=== PATIENT | male | born 1965 | race Caucasian/White ===

== ENCOUNTER 2025-03-30 03:15 | Outpatient (CLI) | payer MEDICARE, SELFPAY ==
--- NOTE | 2025-03-30 | DI.RAD_ITS ---
Exam(s) RF MODIFIED SPEECH BA SWALLOW TECHNIQUE: Modified barium swallow was performed in conjunction with speech pathology. CONTRAST MATERIAL: Oral barium contrast was administered. COMPARISON: No exams were available for comparison FINDINGS: Note that this is not a dedicated esophagram, distal esophagus not evaluated. There is no evidence of aspiration of thick or thin liquid barium, barium paste or barium coated cookie. Speech pathology report to follow. Note was made of penetration with thin liquid barium. IMPRESSION: There is no evidence of aspiration. Note was made of penetration with thin liquid barium. RADIATION DOSE DELIVERED: raya Oleary=12.4 mGy
--- NOTE | 2025-03-30 09:35 | ST.MBS_ITS ---
Date of Service Date of service: 03/30/25 Time of Service: 09:35 Modified Barium Swallow Study Findings: Video fluoroscopic Swallowing Evaluation (VFSE) / Modified Barium Swallow Study (MBSS) Speech Language Pathology Report Patient referred for VFSE/MBSS from Dr. Buck ([facility] [place], [place]) given difficulty swallowing in setting of supraglottic cancer. 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 Recently hospitalized prior to treatment, which has still not started, due to difficulty breathing and significant increase in odynophagia which lead to weight loss and resulted in a PEG tube placement while inpatient. Since that time his weight has stabilized. Hem Onc & Rad Onc team requesting pre-treatment MBSS to document baseline swallow function and to support/inform current treatment plan of definitive chemo/radiation treatment for organ preservation. IMPRESSIONS: Dysphagia diagnosis: Mild oral-pharyngeal dysphagia. Dysphagia is characterized primarily by possible reduced vs sluggish epiglottic inversion and slightly reduced laryngeal closure resulting in deep penetration of mild volumes of thin liquids into the airway to the level of the vocal folds. He is sensate to this residue and largely independent clearing it with throat clears, but requires 1-2 cues throughout the study. Suspect anatomical factors in setting of tumor/tissue changes are responsible, as swallow initiation, coordination, and strength appear largely WFL otherwise. Also noting asymmetrical bolus flow through the pharynx in the anterior/posterior view, though unsure if this represents a pattern changer patient's baseline. Puree & solid bolus as well as 13mm barium tablet transited the oral cavity and pharynx without delay, stasis, or residue. Most successful strategy to reduce frequency of thin liquid penetration was to perform a slight head tilt and following instructions to perform a hard and fast swallow as if swallowing a pill with liquids. Increasing viscosity to nectar thick also eliminated penetration. Clinical Indicator(s) of Prandial/Postprandial Aspiration include: Throat Clear Swallow safety: Patient appears to be at mild risk for potential aspiration PNA and/or pulmonary compromise, especially if swallow decompensates further with active treatment. Swallow efficiency: Patient appears to be at moderate risk for malnutrition, moderate risk for dehydration due to odynophagia, this risk is significantly mitigated already with feeding tube in place. RECOMMENDATIONS: Diet Texture Recommendation:? IDDSI LEVEL SOLIDS 6-Soft & Bite-Sized Solids - for comfort LIQUIDS 0-Thin Liquids with strategies in place Please see further details at?www.iddsi.org MEDICATIONS Whole with 0-Thin Liquids or via tube Diet texture modification is per patient's preference; please adjust diet textures at patient's discretion & collaboration with care team. Do not alter medications (e.g., cut)? without advice from your MD or pharmacist. Risk Management Strategies:? Very small sips, approx 5mL / teaspoon Swallow HARD & FAST Gentle throat clear as needed and re-swallow. Control risk factors for aspiration pneumonia via (a) thorough oral hygiene & (b) maintaining physical mobility as tolerated Swallow prognosis is fair/guarded given: Positive prognostic factors: Age, Severity, Cognitive status, Effectiveness of trialed compensatory strategies, Negative prognostic factors: Relative dose of Chemotherapy and/or radiation treatment, Surgical/anatomical factors and pending patient/caregiver training in risk management as outlined, including use of trialed compensatory strategies. Patient appears to be a good candidate for behavioral swallow rehabilitation to be followed during active treatment for further screening/counseling and HEP. PLAN: Therapy: Recommend subsequent outpatient session with REGISTERED NURSE CARDIAC to review results of today's exam and develop treatment plan as appropriate. HEP/pharyngocise, Further Compensatory Strategy Training, Further Training/Education in Risk Management. GOALS: Defer to treating clinician Recommend repeat VFSE/MBSS after completion of [employer] +6 wks or PRN. OBJECTIVE Videofluoroscopic Swallow Evaluation (VFSE/MBSS) was conducted in the lateral and [id number] projection by Speech-Language Pathologist, in collaboration with Radiologist, to evaluate oropharyngeal swallow function. Anatomic view under fluoroscopy: WFL PO Barium Contrast Trials Oral barium water-soluble contrast was administered as follows: IDDSI Level 0 Varibar thin liquid (40% w/v) IDDSI Level 2 Varibar nectar thick/mildly thick liquid (40% w/v) IDDSI Level 4 Varibar pudding/pureed/extremely thick (40% w/v) IDDSI Level 7 Regular Solid: 1/2 mickie cracker coated in 3 mL Varibar pudding 13 mm barium tablet taken with Thin Liquids. MBSImP Component Scores: COMPONENT Scale SCORE 1 Lip closure (0-4) 0 Resulted in no labial escape 2 Hold Position (0-3) 0 Maintained a cohesive bolus between tongue to palatal seal 3 Bolus Preparation (0-4) 0 Resulted in timely and efficient chewing and mashing 4 Bolus Transport (0-4) 0 Was with brisk tongue motion 5 Oral Residue (0-4) 1 Was a trace, lining oral structures 6 Swallow Initiation (0-4) 2 Occurred as bolus head at posterior laryngeal surface of epiglottis 7 Soft Palate Elevation (0-4) 0 Resulted in no bolus between soft palate and the pharyngeal wall 8 Laryngeal Elevation (0-3) 1 Was decreased with partial superior movement of thyroid cartilage/partial approximation of arytenoids to epiglottic petiole 9 Anterior Hyoid Motion (0-2) 0 Demonstrated complete anterior movement 10 Epiglottic Movement (0-2) 1 Resulted in partial inversion 11 Laryngeal Closure (0-2) 1 Was incomplete with narrow a column of air/contrast in laryngeal vestibule 12 Pharyngeal Stripping Wave (0-2) 0 Was present and complete 13 Pharyngeal Contraction (0-3) 1 Was incomplete, with presence of pseudodiverticulae 14 PES Opening (0-3) 0 Was completely distended and complete duration with no obstruction of flow 15 Tongue Base Retraction (0-4) 1 Allowed a trace column of contrast or air between tongue base and pharyngeal wall 16 Pharyngeal Residue (0-4) 1 Showed a trace within or on pharyngeal structures 17 Esophageal Clearance (0-4) 0 Was complete, with only a coating of contrast, if any Results: COMPONENT Scale SCORE 1 Oral Score (0-18) 2 2 Pharyngeal Score (0-29) 4 3 Esophageal Score (0-4) 0 Penetration-Aspiration Scale: COMPONENT Scale SCORE 1 Thin liquid (1-8) 4 Contrast entered the airway, contacted the vocal folds, and was ejected from the airway. 2 [place] thick (1-8) 1 Contrast did not enter the airway 3 Honey thick (1-8) NA 4 Pudding thick (1-8) 2 Contrast entered the airway, remained above the vocal folds, and was ejected from the airway. 5 Cookie (1-8) 1 Contrast did not enter the airway DIGEST: COMPONENT Scale SCORE 1 Thin Max PAS (1-8) 4 Contrast entered the airway, contacted the vocal folds, and was ejected from the airway. 2 [place] Max PAS (1-8) 1 Contrast did not enter the airway 3 Honey Max PAS (1-8) NA 4 Liquid Max PAS (1-8) 4 Maximum PAS Score over all liquid trials 5 Liquid Max Residue (0-3) 0 below 10% 6 Pudding Max PAS (1-8) 1 Contrast did not enter the airway 7 Pudding Max Residue (0-3) 0 below 10% 8 Cracker Max PAS (1-8) 1 Contrast did not enter the airway 9 Cracker Max Residue (0-3) 0 below 10% 10 Frequency if PAS >= 3 (0-3) 3 Chronic (50% or more of thin liquid trails and/or more than one consistency) 11 Amount if PAS >= 5 (0-1) NA Results: COMPONENT Scale SCORE 1 SAFETY GRADE (0-4) 1 Safety grade for swallowing based on patterns of aspiration or laryngeal penetration 2 EFFICIENCY GRADE (0-4) 0 Efficiency grade of swallowing based on patterns of pharyngeal residue 3 DIGEST (0-4) 1 Severity grade of pharyngeal dysphagia: 0 - Normal, 1 - Mild, 2 - Moderate, 3 - Severe, 4 - Life threatening 4 Max Exam PAS (1-8) 4 Maximum PAS Score over all bolus trials 5 Max Exam Residue (0-3) 0 Maximum Exam Residue over all bolus trials [place] Pharyngeal Residue Severity Rating Scale (YPRS) (Jennifer et al, 2015) Vallecula Residue Severity I None 0% No residue Pyriform Sinus Residue Severity II Trace 1-5% Trace coating of the mucosa Observations not captured in quantitative data: Some hypopharyngeal trace residue for liquids on the inferior posterior pharyngeal wall, likely transferred from posterior surface of epiglottis with incomplete closure. Trialed Compensatory Strategies & Outcome: Maneuvers Successful (+) Unsuccessful(-) Postures Successful (+) Unsuccessful(-) 3 second hold ?+ Chin Tuck Posture? ? Cough? ? Posterior Head tilt?? ?+/- in isolation ? Reflexive? Cued? Throat Clear? ? Head Tilt to? Reflexive? ?+ ? Left? Cued? ?+ ? Right? ? Saliva swallow? ?+ (liquids) Head Turn/Rotate to? ? Supraglottic Swallow? Left? ? Super-supraglottic Swallow? Right? ? Bolus Modifications Successful (+) Unsuccessful (-) Delivery/Alternating Consistencies ? Follow with Liquid Wash ? Follow with Solid Bolus? Delivery/Via Straw? ? Reduced Volume? ?+ Reduced Rate of Intake? ? Increased Viscosity? ?+ Other:??HARD AND FAST WITH HEAD TILT ?+ Thank you for allowing us to take part in this patient's care. Please feel free to contact the [facility] Speech Language Pathology Department with any questions/concerns.
[2025-03-30] MEDS: Barium Sulfate 81% w/w for Oral Suspension 148 GM BTL PO (10:10)
[2025-03-30] MEDS: Barium Sulfate 40% W/V 240 ML BTL PO (10:11)
[2025-03-30] MEDS: Barium Sulfate 700 MG TAB PO (10:12)
[2025-03-30] MEDS: Barium Sulfate Oral Paste 40% W/V 230 ML TUBE PO (10:13)
== END 2025-03-30 03:35 ==
PROVIDERS: Visit Provider Internal Medicine Hematology
DX: R13.12 Dysphagia, oropharyngeal phase (principal)
CPT/HCPCS: 92526; 74221

== ENCOUNTER 2025-04-24 01:25 | Outpatient (CLI) | payer MEDICARE, SELFPAY ==
[2025-04-24 11:43] LABS: Abs Immature Grans 0.03 10^3/uL (0.0-0.06); HCT 36.3 % (40.0-50.0); HGB 11.2 g/dL (13.5-17.5); Immature Grans % 0.4 %; MCH 27.7 pg (27.0-33.0); MCHC 30.9 % (32.0-36.0); MCV 90 fL (80-95); MPV 9.9 fL (8.0-11.0); Platelet Count 320 10^3/uL (130-400); RBC 4.04 10^6/uL (4.36-5.78); RDW 13.6 % (11.8-14.1); RDW-SD 45.1 fL; WBC 8.22 10^3/uL (4.4-10.8)
[2025-04-24 12:06] LABS: ALT 43 U/L (16-63); AST 31 U/L (15-37); Albumin 3.1 g/dL (3.4-5.0); Alkaline Phosphatase 127 U/L (46-116); Anion Gap 1.2 mmol/L (3-11); BUN 21 mg/dL (7-18); Bilirubin, Total 0.2 mg/dL (0.2-1.0); CO2 38.8 mmol/L (21.0-32.0); Calcium 8.6 mg/dL (8.5-10.1); Chloride 99 mmol/L (98-107); Glucose 113 mg/dL (74-106); Magnesium 2.1 mg/dL (1.8-2.4); Potassium 4.3 mmol/L (3.5-5.1); Sodium 139 mmol/L (136-145); Total Protein 6.7 g/dL (6.4-8.2)
== END 2025-04-24 01:26 | disposition home or self-care (01) ==
LOC: LBO 01:25
PROVIDERS: Visit Provider Internal Medicine Hematology
DX: C32.9 Malignant neoplasm of larynx, unspecified (principal)
CPT/HCPCS: 36415; 80053; 83735; 85025

== ENCOUNTER 2025-04-30 03:35 | Outpatient (CLI) | payer MEDICARE, SELFPAY ==
[2025-04-30 11:23] LABS: Abs Immature Grans 0.03 10^3/uL (0.0-0.06); HCT 37.7 % (40.0-50.0); HGB 12.4 g/dL (13.5-17.5); Immature Grans % 0.3 %; MCH 29.0 pg (27.0-33.0); MCHC 32.9 % (32.0-36.0); MCV 88 fL (80-95); MPV 10.2 fL (8.0-11.0); Platelet Count 319 10^3/uL (130-400); RBC 4.27 10^6/uL (4.36-5.78); RDW 13.7 % (11.8-14.1); RDW-SD 43.8 fL; WBC 10.91 10^3/uL (4.4-10.8)
[2025-04-30 11:36] LABS: ALT 38 U/L (16-63); AST 37 U/L (15-37); Albumin 3.0 g/dL (3.4-5.0); Alkaline Phosphatase 103 U/L (46-116); Anion Gap 5.9 mmol/L (3-11); BUN 20 mg/dL (7-18); Bilirubin, Total 0.6 mg/dL (0.2-1.0); CO2 32.1 mmol/L (21.0-32.0); Calcium 8.2 mg/dL (8.5-10.1); Chloride 101 mmol/L (98-107); Glucose 115 mg/dL (74-106); Magnesium 2.0 mg/dL (1.8-2.4); Potassium 4.3 mmol/L (3.5-5.1); Sodium 139 mmol/L (136-145); Total Protein 6.8 g/dL (6.4-8.2)
== END 2025-04-30 03:36 | disposition home or self-care (01) ==
LOC: LBO 03:35
PROVIDERS: Visit Provider Internal Medicine Hematology
DX: C32.9 Malignant neoplasm of larynx, unspecified (principal)
CPT/HCPCS: 36415; 80053; 71046; 83735; 85025

== ENCOUNTER → 2025-04-30 12:24 | Outpatient (CLI) | payer MEDICARE, SELFPAY ==
--- NOTE | 2025-04-30 15:23 | DI.RAD_ITS ---
Exam(s) XR CHEST 2V PA LATERAL EXAM: XR CHEST 2V PA LATERAL CLINICAL HISTORY: HEAD AND NECK CANCER, CHEMO/RADIATION, WORSENING DYSPNEA, COUGH TECHNIQUE: 2D digital imaging was performed. Two views. COMPARISON: RF RF MODIFIED SPEECH BA SWALLOW from 03/30/2025 FINDINGS: HEART: Normal size. Aorta: Not dilated. PULMONARY VASCULATURE: Normal. MEDIASTINUM: Unremarkable. LUNGS: Hyperinflated but clear. PLEURAL SPACE: No pleural effusion or pneumothorax. BONE:Moderate mid thoracic compression fracture. Mild lower thoracic compression fracture. SOFT TISSUES: Peg tube. IMPRESSION: No acute abnormality. DATA REPOSITORY: RADIATION DOSE DELIVERED:
== END ==
LOC: DI 12:25
PROVIDERS: Visit Provider Internal Medicine Hematology
DX: C32.9 Malignant neoplasm of larynx, unspecified (principal)
CPT/HCPCS: 71046

== ENCOUNTER 2025-05-07 13:57 | Outpatient (CLI) | payer MEDICARE, SELFPAY ==
[2025-05-07 11:11] LABS: Abs Immature Grans 0.03 10^3/uL (0.0-0.06); HCT 35.6 % (40.0-50.0); HGB 11.5 g/dL (13.5-17.5); Immature Grans % 0.4 %; MCH 28.7 pg (27.0-33.0); MCHC 32.3 % (32.0-36.0); MCV 89 fL (80-95); MPV 10.0 fL (8.0-11.0); Platelet Count 329 10^3/uL (130-400); RBC 4.01 10^6/uL (4.36-5.78); RDW 14.1 % (11.8-14.1); RDW-SD 43.8 fL; WBC 7.53 10^3/uL (4.4-10.8)
[2025-05-07 11:26] LABS: Magnesium 2.0 mg/dL (1.6-2.6)
[2025-05-07 11:28] LABS: ALT 25 U/L (10-49); AST 22 U/L (<34); Albumin 4.2 g/dL (3.4-5.0); Alkaline Phosphatase 109 U/L (46-116); Anion Gap 3.2 mmol/L (3-11); BUN 22 mg/dL (9-23); Bilirubin, Total 0.40 mg/dL (0.2-1.2); CO2 33.6 mmol/L (20.0-31.0); Calcium 8.9 mg/dL (8.3-10.6); Chloride 98 mmol/L (98-107); Glucose 87 mg/dL (74-106); Potassium 4.7 mmol/L (3.5-5.1); Sodium 135 mmol/L (136-145); Total Protein 6.9 g/dL (5.7-8.2)
== END 2025-05-07 13:58 | disposition home or self-care (01) ==
LOC: LBO 14:00
PROVIDERS: Visit Provider Internal Medicine Hematology
DX: C32.9 Malignant neoplasm of larynx, unspecified (principal)
CPT/HCPCS: 36415; 80053; 83735; 85025

== ENCOUNTER 2025-05-14 11:00 | Outpatient (REF) | payer MEDICARE, SELFPAY ==
[2025-05-14 11:09] LABS: Abs Immature Grans 0.05 10^3/uL (0.0-0.06); HCT 38.7 % (40.0-50.0); HGB 12.6 g/dL (13.5-17.5); Immature Grans % 0.4 %; MCH 28.8 pg (27.0-33.0); MCHC 32.6 % (32.0-36.0); MCV 88 fL (80-95); MPV 10.8 fL (8.0-11.0); Platelet Count 329 10^3/uL (130-400); RBC 4.38 10^6/uL (4.36-5.78); RDW 14.6 % (11.8-14.1); RDW-SD 45.4 fL; WBC 11.14 10^3/uL (4.4-10.8)
[2025-05-14 11:38] LABS: Magnesium 1.9 mg/dL (1.6-2.6)
[2025-05-14 11:40] LABS: ALT 24 U/L (10-49); AST 19 U/L (<34); Albumin 4.3 g/dL (3.4-5.0); Alkaline Phosphatase 104 U/L (46-116); Anion Gap 7.3 mmol/L (3-11); BUN 24 mg/dL (9-23); Bilirubin, Total 0.30 mg/dL (0.2-1.2); CO2 32.5 mmol/L (20.0-31.0); Calcium 9.3 mg/dL (8.3-10.6); Chloride 97 mmol/L (98-107); Glucose 76 mg/dL (74-106); Potassium 4.2 mmol/L (3.5-5.1); Sodium 137 mmol/L (136-145); Total Protein 7.0 g/dL (5.7-8.2)
== END 2025-05-14 11:01 | disposition home or self-care (01) ==
LOC: LBN 11:00
PROVIDERS: Visit Provider Internal Medicine Hematology
DX: C32.9 Malignant neoplasm of larynx, unspecified (principal)
CPT/HCPCS: 80053; 83735; 85025

== ENCOUNTER 2025-05-15 10:36 | Outpatient (REF) | payer MEDICARE, SELFPAY ==
[2025-05-15 13:07] LABS: Cannabinoids THC Positive (Negative)
== END 2025-05-15 10:37 | disposition home or self-care (01) ==
LOC: LBN 10:36
PROVIDERS: Visit Provider Family Medicine
DX: Z79.899 Other long term (current) drug therapy (principal)
CPT/HCPCS: 80307

== ENCOUNTER 2025-05-21 10:46 | Outpatient (CLI) | payer MEDICARE, SELFPAY ==
[2025-05-21 09:05] LABS: Abs Immature Grans 0.10 10^3/uL (0.0-0.06); HCT 42.2 % (40.0-50.0); HGB 13.6 g/dL (13.5-17.5); Immature Grans % 1.0 %; MCH 29.4 pg (27.0-33.0); MCHC 32.2 % (32.0-36.0); MCV 91 fL (80-95); MPV 9.9 fL (8.0-11.0); Platelet Count 277 10^3/uL (130-400); RBC 4.63 10^6/uL (4.36-5.78); RDW 15.1 % (11.8-14.1); RDW-SD 48.6 fL; WBC 10.47 10^3/uL (4.4-10.8)
[2025-05-21 09:23] LABS: Magnesium 2.0 mg/dL (1.6-2.6)
[2025-05-21 09:24] LABS: ALT 44 U/L (10-49); AST 25 U/L (<34); Albumin 4.7 g/dL (3.2-5.0); Alkaline Phosphatase 112 U/L (46-116); Anion Gap 6.8 mmol/L (3-11); BUN 19 mg/dL (9-23); Bilirubin, Total 0.40 mg/dL (0.2-1.2); CO2 35.6 mmol/L (20.0-31.0); Calcium 9.7 mg/dL (8.3-10.6); Chloride 97 mmol/L (98-107); Glucose 93 mg/dL (74-106); Potassium 5.0 mmol/L (3.5-5.1); Sodium 139 mmol/L (136-145); Total Protein 7.5 g/dL (5.7-8.2)
== END 2025-05-21 10:47 | disposition home or self-care (01) ==
LOC: LBO 10:47
PROVIDERS: Visit Provider Internal Medicine Hematology
DX: C32.9 Malignant neoplasm of larynx, unspecified (principal)
CPT/HCPCS: 36415; 80053; 83735; 85025

== ENCOUNTER 2025-05-22 11:05 | Emergency (ER) | payer MEDICARE, SELFPAY ==
[2025-05-22 11:24] VITALS: BP 113/67; PULSE 94; RESP 20; TEMP 36.8; O2SAT 96
--- NOTE | 2025-05-24 11:15 | W.ED.GENAD ---
Discharge Plan Discharge Details Chief Complaint: GI Bleed Primary Care Provider: Mary Briscoe ED Provider: Provider,Temporary Home Meds and New Rx's Prescriptions: No Action oxycodone 20 mg tablet 20 mg PO Q4H MDD 8 pills PRN (Reason: pain) Qty: 56 0RF lorazepam 0.5 mg tablet See Rx Instructions PO QHS MDD 2 pills Qty: 14 0RF Rx Instructions: 1-2 at bedtime as needed for insomnia orally every day at bedtime; dexamethasone 4 mg tablet 4 mg PO DAILY Rx Instructions: BID x 7 days, Daily x 7 days, 0.5 tab x 7 days prochlorperazine maleate [Compazine] 10 mg tablet 10 mg PO Q6H PRN chlorpromazine 25 mg tablet 25 mg PO BID lorazepam 2 mg tablet 2 mg PO DAILY Rx Instructions: PRIOR to RAD [place], Given by [facility] Staff Discharge Data Discharge Date/Time-TO BE ENTERED AT DEPARTURE: 05/22/25 13:48 HPI General Date/Time Provider Initiated Documentation: 05/22/25 11:43. HPI Narrative: This complex and agitated 59-year-old male with recent diagnosis of laryngeal cancer presents from palliative care with vomiting blood since last night. Patient is receiving radiation and chemotherapy last chemotherapy last week last radiation yesterday. [facility] and refused to administer radiation until he is evaluated for the hematemesis. Patient states he has been unable to hold down his oxycodone which is why he presents. He denies any alcohol consumption. He does report continued pain burning in his chest and throat. He denies history of hematemesis in the past. He denies any diarrhea. Related Data Home Medications ?Medication ?Instructions ?Recorded ?Confirmed chlorpromazine 25 mg tablet 25 mg PO BID 05/04/25 05/22/25 prochlorperazine maleate 10 mg 10 mg PO Q6H PRN 05/04/25 05/22/25 tablet (Compazine) lorazepam 2 mg tablet 2 mg PO DAILY 05/15/25 05/22/25 dexamethasone 4 mg tablet 4 mg PO DAILY 05/22/25 05/22/25 lorazepam 0.5 mg tablet See Rx Instructions PO QHS #14 tabs 05/22/25 05/22/25 oxycodone 20 mg tablet 20 mg PO Q4H PRN pain #56 tabs 05/22/25 05/22/25 Previous Rx's ?Medication ?Instructions ?Recorded lorazepam 0.5 mg tablet See Rx Instructions PO QHS #14 tabs 05/22/25 oxycodone 20 mg tablet 20 mg PO Q4H PRN pain #56 tabs 05/22/25 Allergies Allergy/AdvReac Type Severity Reaction Status Date / Time No Known Allergies Allergy Verified 05/22/25 11:29 General Stated Complaint: GI Bleed ERMIAS: 3 Exam Narrative Exam Narrative: 59-year-old male, agitated, stridorous, dyspneic with scant dark vomitus, oropharynx is patent uvula is midline no visible blood tenderness in chest wall stridor noted, wheezes mild respiratory distress no abdominal tenderness Course Vital Signs Vital signs: Vital Signs Temperature 36.8 C 05/22/25 11:24 Pulse 94 H 05/22/25 11:24 Respiratory Rate 20 05/22/25 11:24 Blood Pressure 113/67 05/22/25 11:24 Pulse Oximetry 96 05/22/25 11:24 Temperature 36.8 C 05/22/25 11:24 Temperature Source Oral 05/22/25 11:24 Pulse 94 H 05/22/25 11:24 Respiratory Rate 20 05/22/25 11:24 Blood Pressure 113/67 05/22/25 11:24 Blood Pressure Position Sitting 05/22/25 11:24 Pulse Oximetry 96 05/22/25 11:24 Oxygen Delivery Method Room Air 05/22/25 11:24 Oxygen Flow Rate 0 05/22/25 11:24 Pain Level 10 05/22/25 11:24 Medical Decision Making Assessment and plan: Patient presenting from palliative care with a report of hematemesis. Patient was very agitated and demanding pain medication on my initial evaluation. He kept interrupting to ask me how long have I been here . I relayed to the patient that I need to do an initial assessment and that I would like to move him to another room in the main emergency department and perform blood work and airway imaging immediately. Patient is very agitated and aggressive and tells me he needs pain medication right now. I informed him that I am happy to administer pain medication but need to walk back to the emergency department and place orders on that I will take a few minutes for us to place a line and start treatment. Patient then informs me that nobody knows what they are doing. I informed the patient that this is an emergency department that is very busy and were working very hard and that we would be happy to treat this patient, however he cannot guarantee immediate care. Patient then proceeded to say [id number] you. I relayed to patient that he cannot speak to us like that and it is inappropriate. Patient again said Fu3 you. I did relay to the patient that this is inappropriate he cannot speak to us like this we are happy to treat him medically but I will not allow this behavior. Patient said fine I am leaving. Patient stood up and walked out of the emergency department at this time, I was not able to review AGAINST MEDICAL ADVICE, therefore he is eloping. I am quite concerned about this patient especially with his history of laryngeal cancer and hematemesis, however his agitation and aggressive behavior makes it a challenge to treat him unfortunately. I feel this patient requires emergent assessment. PFSH All Active Problems (Updated 05/22/25 @ 11:19 by Anastasiya Irizarry MD) Emesis (Acute) Opiate withdrawal (Acute) Insomnia (Acute) Claustrophobia (Acute) Anxiety (Chronic) Advanced care planning/counseling discussion (Acute) Cancer related pain (Acute) Substance use disorder (Acute) Cancer of larynx (Acute) Social History Smoking risk assessment performed?: No Drug use: Occasionally Substance use type: heroin
== END 2025-05-22 13:48 | disposition left against medical advice (07) ==
DX: K92.0 Hematemesis (principal); R45.1 Restlessness and agitation; C32.9 Malignant neoplasm of larynx, unspecified; Z92.3 Personal history of irradiation; Z92.21 Personal history of antineoplastic chemotherapy; Z53.29 Procedure and treatment not carried out because of patient's decision for other reasons
CPT/HCPCS: 36415; 99281

== ENCOUNTER 2025-05-28 10:05 | Outpatient (CLI) | payer MEDICARE, SELFPAY ==
[2025-05-28 09:01] LABS: Abs Immature Grans 0.05 10^3/uL (0.0-0.06); HCT 29.3 % (40.0-50.0); HGB 9.6 g/dL (13.5-17.5); Immature Grans % 0.6 %; MCH 29.8 pg (27.0-33.0); MCHC 32.8 % (32.0-36.0); MCV 91 fL (80-95); MPV 9.9 fL (8.0-11.0); Platelet Count 248 10^3/uL (130-400); RBC 3.22 10^6/uL (4.36-5.78); RDW 16.1 % (11.8-14.1); RDW-SD 49.6 fL; WBC 8.98 10^3/uL (4.4-10.8)
[2025-05-28 09:23] LABS: Magnesium 1.7 mg/dL (1.6-2.6)
[2025-05-28 09:25] LABS: ALT 53 U/L (10-49); AST 35 U/L (<34); Albumin 4.1 g/dL (3.2-5.0); Alkaline Phosphatase 92 U/L (46-116); Anion Gap 7.3 mmol/L (3-11); BUN 16 mg/dL (9-23); Bilirubin, Total 0.30 mg/dL (0.2-1.2); CO2 31.1 mmol/L (20.0-31.0); Calcium 8.5 mg/dL (8.3-10.6); Chloride 99 mmol/L (98-107); Glucose 94 mg/dL (74-106); Potassium 3.8 mmol/L (3.5-5.1); Sodium 137 mmol/L (136-145); Total Protein 6.6 g/dL (5.7-8.2)
== END 2025-05-28 10:06 | disposition home or self-care (01) ==
LOC: LBO 10:06
PROVIDERS: Visit Provider Internal Medicine Hematology
DX: C32.9 Malignant neoplasm of larynx, unspecified (principal)
CPT/HCPCS: 36415; 80053; 83735; 85025

== ENCOUNTER 2025-06-04 09:53 | Outpatient (CLI) | payer MEDICARE, SELFPAY ==
[2025-06-04 09:14] LABS: Abs Immature Grans 0.04 10^3/uL (0.0-0.06); HCT 33.5 % (40.0-50.0); HGB 10.9 g/dL (13.5-17.5); Immature Grans % 0.6 %; MCH 30.2 pg (27.0-33.0); MCHC 32.5 % (32.0-36.0); MCV 93 fL (80-95); MPV 9.1 fL (8.0-11.0); Platelet Count 373 10^3/uL (130-400); RBC 3.61 10^6/uL (4.36-5.78); RDW 17.8 % (11.8-14.1); RDW-SD 59.1 fL; WBC 6.41 10^3/uL (4.4-10.8)
[2025-06-04 09:27] LABS: Magnesium 1.8 mg/dL (1.6-2.6)
[2025-06-04 09:29] LABS: ALT 36 U/L (10-49); AST 27 U/L (<34); Albumin 4.4 g/dL (3.2-5.0); Alkaline Phosphatase 102 U/L (46-116); Anion Gap 7.4 mmol/L (3-11); BUN 18 mg/dL (9-23); Bilirubin, Total 0.3 mg/dL (0.2-1.2); CO2 29.8 mmol/L (20.0-31.0); Calcium 9.0 mg/dL (8.3-10.6); Chloride 98 mmol/L (98-107); Glucose 124 mg/dL (74-106); Potassium 3.9 mmol/L (3.5-5.1); Sodium 135 mmol/L (136-145); Total Protein 7.3 g/dL (5.7-8.2)
== END 2025-06-04 09:54 | disposition home or self-care (01) ==
LOC: LBO 09:54
PROVIDERS: Visit Provider Internal Medicine Hematology
DX: C32.9 Malignant neoplasm of larynx, unspecified (principal)
CPT/HCPCS: 36415; 80053; 83735; 85025

== ENCOUNTER 2025-06-11 08:38 | Outpatient (CLI) | payer MEDICARE, SELFPAY ==
[2025-06-11 08:27] LABS: Abs Immature Grans 0.03 10^3/uL (0.0-0.06); HCT 34.0 % (40.0-50.0); HGB 11.0 g/dL (13.5-17.5); Immature Grans % 0.5 %; MCH 30.4 pg (27.0-33.0); MCHC 32.4 % (32.0-36.0); MCV 94 fL (80-95); MPV 9.2 fL (8.0-11.0); Platelet Count 330 10^3/uL (130-400); RBC 3.62 10^6/uL (4.36-5.78); RDW 17.9 % (11.8-14.1); RDW-SD 59.7 fL; WBC 6.39 10^3/uL (4.4-10.8)
[2025-06-11 08:44] LABS: Magnesium 1.6 mg/dL (1.6-2.6)
[2025-06-11 08:46] LABS: ALT 40 U/L (10-49); AST 29 U/L (<34); Albumin 4.3 g/dL (3.2-5.0); Alkaline Phosphatase 106 U/L (46-116); Anion Gap 8 mmol/L (3-11); BUN 18 mg/dL (9-23); Bilirubin, Total 0.3 mg/dL (0.2-1.2); CO2 29.4 mmol/L (20.0-31.0); Calcium 9.1 mg/dL (8.3-10.6); Chloride 98 mmol/L (98-107); Glucose 168 mg/dL (74-106); Potassium 4.6 mmol/L (3.5-5.1); Sodium 135 mmol/L (136-145); Total Protein 7.1 g/dL (5.7-8.2)
== END 2025-06-11 08:39 | disposition home or self-care (01) ==
LOC: LBO 08:38
PROVIDERS: Visit Provider Internal Medicine Hematology
DX: C32.9 Malignant neoplasm of larynx, unspecified (principal)
CPT/HCPCS: 36415; 80053; 83735; 85025

== ENCOUNTER 2025-06-18 00:51 | Outpatient (CLI) | payer MEDICARE, SELFPAY ==
[2025-06-18 09:05] LABS: Abs Immature Grans 0.02 10^3/uL (0.0-0.06); HCT 29.8 % (40.0-50.0); HGB 9.5 g/dL (13.5-17.5); Immature Grans % 0.3 %; MCH 30.8 pg (27.0-33.0); MCHC 31.9 % (32.0-36.0); MCV 97 fL (80-95); MPV 9.3 fL (8.0-11.0); Platelet Count 293 10^3/uL (130-400); RBC 3.08 10^6/uL (4.36-5.78); RDW 18.0 % (11.8-14.1); RDW-SD 62.8 fL; WBC 7.27 10^3/uL (4.4-10.8)
[2025-06-18 09:25] LABS: ALT 31 U/L (10-49); AST 30 U/L (<34); Albumin 4.0 g/dL (3.2-5.0); Alkaline Phosphatase 89 U/L (46-116); Anion Gap 4.2 mmol/L (3-11); BUN 22 mg/dL (9-23); Bilirubin, Total < 0.2 mg/dL (0.2-1.2); CO2 36.0 mmol/L (20.0-31.0); Calcium 8.5 mg/dL (8.3-10.6); Chloride 97 mmol/L (98-107); Glucose 87 mg/dL (74-106); Magnesium 1.6 mg/dL (1.6-2.6); Potassium 4.0 mmol/L (3.5-5.1); Sodium 137 mmol/L (136-145); Total Protein 6.4 g/dL (5.7-8.2)
== END 2025-06-18 00:52 | disposition home or self-care (01) ==
LOC: LBO 00:51
PROVIDERS: Visit Provider Internal Medicine Hematology
DX: C32.9 Malignant neoplasm of larynx, unspecified (principal)
CPT/HCPCS: 36415; 80053; 83735; 85025